=== PATIENT | female | born 1985 | race Caucasian/White ===

== ENCOUNTER 2016-11-04 05:22 | Day surgery (SDC) | payer OTHER ==
[~2016-11-04] VITALS: Ht 154.9 cm; Wt 55.0 kg
[~2016-11-04 05:22] MED LIST: DIABETA2.5 MG PO; ENDOCET 5-3251 EACH PO; GLUCOPHAGE1000 MG PO; GLUCOPHAGE500 MG PO; HUMALOG100 UNIT/2 SC; HYDROCODON-ACE1 EAC7 PO; IBUPROFEN800 MG PO; LEVEMIR FL100 UNIT/1 SC; LO-DOSE ASPIRIN81 M1 PO; METFORMIN HCL500 MG PO; MOTRIN800 MG PO; NORCO 5/3251 TABLET PO; PRENATAL TABLE1 EAC3 PO; PRENATAL TABLE1 EACH PO; PROGESTERONE200 MG PO; VENTOLIN HFA18 GM IH; VIBRAMYCIN100 MG PO
[2016-11-04] MEDS ORDERED: TYLENOL EXTRA500 MG PO (05:51)
[2016-11-04 06:05] VITALS: BP 110/77
[2016-11-04 06:08] LABS: POINT-OF-CARE METER ID UU13113694
[2016-11-04] MEDS ORDERED: ENDOCET 5-3251 EACH PO (08:05)
[2016-11-04 08:34] LABS: POINT-OF-CARE METER ID UU13113675
[2016-11-04 09:27] VITALS: BP 123/86
[2016-11-04 10:27] VITALS: BP 119/80
== END 2016-11-04 10:40 | disposition home or self-care (01) ==
LOC: SDC 05:22
PROVIDERS: Obstetrics & Gynecology Gynecology
PROC: 10D17ZZ Extraction of Products of Conception, Retained, Via Natural or Artificial Opening (ICD-10-PCS; principal; 2016-11-04)
DX: O02.1 Missed abortion (principal); Z3A.09 9 weeks gestation of pregnancy; O24.911 Unspecified diabetes mellitus in pregnancy, first trimester; Z79.82 Long term (current) use of aspirin; Z79.4 Long term (current) use of insulin
CPT/HCPCS: 82948; 86900; 86901; 88305; J0131; J1100; J1885; J2250; J2405; J2765; J3010

== ENCOUNTER 2017-11-14 15:21 | Outpatient (CLI) | payer OTHER ==
[~2017-11-14] VITALS: Ht 154.9 cm; Wt 73.0 kg
[~2017-11-14 15:21] MED LIST changes: +TYLENOL EXTRA500 MG PO
[2017-11-14 15:40] VITALS: BP 132/87
[2017-11-14] MEDS ORDERED: ZOLOFT50 MG PO (15:54)
[2017-11-14 16:01] VITALS: BP 129/82
[2017-11-14 16:15] LABS: BASOPHIL (%) 0.3 % (0-1); EOSINOPHIL (%) 0.7 % (0-5); EOSINOPHIL COUNT 0.1 K/uL (0-0.3); HEMOGLOBIN 10.6 G/DL (11.9-15.5); IMMATURE GRANULOCYTE (%) 0.9 % (0.0-0.7); LYMPHOCYTE (%) 12.8 % (15-42); LYMPHOCYTE COUNT 0.9 K/uL (1.0-2.8); MCH 29.4 PG (29.0-34.0); MCHC 33.1 G/DL (30.0-36.0); MCV 88.9 FL (83-99); MONOCYTE (%) 6.2 % (3-12); MONOCYTE COUNT 0.4 K/uL (0-0.8); NEUTROPHIL (%) 79.1 % (45-76); NEUTROPHIL COUNT 5.4 K/uL (1.8-6.4); PLATELET COUNT 135 K/uL (156-360); RBC DIS.WIDTH-CV 14.9 % (11.8-14.6); RBC DIS.WIDTH-SD 48.3 % (39-53); WHITE BLOOD COUNT 6.8 K/uL (4.1-10.2)
[2017-11-14 16:28] LABS: ALBUMIN 2.9 G/DL (3.2-4.8); CHLORIDE 108 MEQ/L (99-109); POTASSIUM 3.9 MEQ/L (3.7-5.4); SODIUM 139 MEQ/L (136-147); TOTAL BILIRUBIN 0.3 MG/DL (0.0-1.0)
[2017-11-14 16:31] VITALS: BP 121/84
[2017-11-14 16:34] LABS: ALKALINE PHOSPHATASE 170 IU/L (3-129); ALT (GPT) 10 IU/L (3-49); AST (GOT) 20 IU/L (2-34); CREATININE 0.5 MG/DL (0.6-1.3); GFR ESTIMATE (CALCULATED) > 59 mL/min/; GLUCOSE 110 mg/dL (70-99); TOTAL PROTEIN 5.5 G/DL (6.4-8.3); UREA NITROGEN (BUN) 6 mg/dL (9-23)
[2017-11-14 16:43] LABS: UR CREATININE CONCENTRATION 51.5 MG/DL
[2017-11-14 16:54] VITALS: BP 128/88
== END 2017-11-14 17:38 | disposition home or self-care (01) ==
LOC: LDRP-OP 15:21 → 2WEST 15:22 → LDRP-OP 12-28 11:50
PROVIDERS: Advanced Practice Midwife
DX: O13.3 Gestational [pregnancy-induced] hypertension without significant proteinuria, third trimester (principal); Z3A.38 38 weeks gestation of pregnancy; O24.313 Unspecified pre-existing diabetes mellitus in pregnancy, third trimester; O24.113 Pre-existing type 2 diabetes mellitus, in pregnancy, third trimester; E11.9 Type 2 diabetes mellitus without complications; Z79.4 Long term (current) use of insulin
CPT/HCPCS: 59025; 80053; 82570; 84156; 85025; G0378

== ENCOUNTER 2017-11-15 14:11 | Inpatient (IN) | payer OTHER ==
[2017-11-15] VITALS (21 sets, daily range): BP systolic 115–179; BP diastolic 71–94
[~2017-11-15] VITALS: Ht 154.9 cm; Wt 72.0 kg
[~2017-11-15 14:11] MED LIST changes: +ZOLOFT50 MG PO
[2017-11-15 15:18] LABS: BASOPHIL (%) 0.1 % (0-1); EOSINOPHIL (%) 0.6 % (0-5); EOSINOPHIL COUNT 0.1 K/uL (0-0.3); HEMATOCRIT 32.3 % (36.0-46.0); HEMOGLOBIN 10.9 G/DL (11.9-15.5); IMMATURE GRANULOCYTE (%) 1.2 % (0.0-0.7); LYMPHOCYTE (%) 13.2 % (15-42); MCH 29.5 PG (29.0-34.0); MCHC 33.7 G/DL (30.0-36.0); MCV 87.5 FL (83-99); MONOCYTE COUNT 0.5 K/uL (0-0.8); NEUTROPHIL (%) 78.9 % (45-76); NEUTROPHIL COUNT 6.2 K/uL (1.8-6.4); NRBC (%) 0.3 /100 WBC (0-0); PLATELET COUNT 145 K/uL (156-360); RBC DIS.WIDTH-CV 14.7 % (11.8-14.6); RBC DIS.WIDTH-SD 46.8 % (39-53); RED BLOOD COUNT 3.69 M/uL (3.80-5.20); WHITE BLOOD COUNT 7.8 K/uL (4.1-10.2)
[2017-11-15 15:26] LABS: CHLORIDE 111 mEq/L (99-109); POTASSIUM 3.9 mEq/L (3.7-5.4); SODIUM 139 mEq/L (136-147)
[2017-11-15 15:28] LABS: TOTAL PROTEIN 5.9 g/dL (6.4-8.3)
[2017-11-15 15:30] LABS: TOTAL BILIRUBIN 0.3 mg/dL (0.0-1.0)
[2017-11-15 15:32] LABS: ALKALINE PHOSPHATASE 188 IU/L (3-129); CREATININE 0.6 mg/dL (0.6-1.3); GFR ESTIMATE (CALCULATED) > 59 mL/min/
[2017-11-15 15:33] LABS: UREA NITROGEN (BUN) 8 mg/dL (9-23)
[2017-11-15 15:34] LABS: AST (GOT) 29 IU/L (2-34)
[2017-11-15 15:35] LABS: ALT (GPT) 15 IU/L (3-49); URIC ACID 5.7 mg/dL (3.1-9.2)
[2017-11-15 15:38] LABS: GLUCOSE 59 mg/dL (70-99)
[2017-11-15 16:23] LABS: UR CREATININE CONCENTRATION 80.6 MG/DL
[2017-11-15 16:39] LABS: AMPHETAMINE NEGATIVE (500 ng/mL); BARBITURATES NEGATIVE (200 ng/mL); BENZODIAZEPINES NEGATIVE (150 ng/mL); BUPRENORPHINE NEGATIVE (10 ng/mL); COCAINE NEGATIVE (150 ng/mL); METHADONE NEGATIVE (200 ng/mL); METHAMPHETAMINE NEGATIVE (500 ng/mL); OPIATES (MORPHINE) NEGATIVE (100 ng/mL); OXYCODONE NEGATIVE (100 ng/mL); PHENCYCLIDINE NEGATIVE (25 ng/mL); PROPOXYPHENE NEGATIVE (300 ng/mL); THC CANNABINOIDS NEGATIVE (50 ng/mL); TRICYCLIC ANTIDEPRESSANTS NEGATIVE (300 ng/mL)
[2017-11-16] VITALS (24 sets, daily range): BP systolic 115–162; BP diastolic 72–98
[2017-11-16 10:27] LABS: TREPONEMA ANTIBODY NEGATIVE (NEGATIVE)
[2017-11-16] MEDS ORDERED: IBUPROFEN800 MG PO (13:51)
[2017-11-17 04:00] VITALS: BP 134/96
[2017-11-17 06:06] LABS: BASOPHIL (%) 0.3 % (0-1); EOSINOPHIL (%) 0.8 % (0-5); EOSINOPHIL COUNT 0.1 K/uL (0-0.3); HEMATOCRIT 27.4 % (36.0-46.0); HEMOGLOBIN 9.1 G/DL (11.9-15.5); IMMATURE GRANULOCYTE (%) 1.4 % (0.0-0.7); LYMPHOCYTE COUNT 1.9 K/uL (1.0-2.8); MCH 29.7 PG (29.0-34.0); MCHC 33.2 G/DL (30.0-36.0); MCV 89.5 FL (83-99); MONOCYTE (%) 6.7 % (3-12); MONOCYTE COUNT 0.6 K/uL (0-0.8); NEUTROPHIL (%) 70.8 % (45-76); NEUTROPHIL COUNT 6.8 K/uL (1.8-6.4); PLATELET COUNT 118 K/uL (156-360); RBC DIS.WIDTH-CV 14.4 % (11.8-14.6); RBC DIS.WIDTH-SD 46.7 % (39-53); RED BLOOD COUNT 3.06 M/uL (3.80-5.20); WHITE BLOOD COUNT 9.6 K/uL (4.1-10.2)
[2017-11-17 07:26] VITALS: BP 122/84
[2017-11-17 12:10] VITALS: BP 138/87
[2017-11-17 15:11] VITALS: BP 137/89
[2017-11-17 19:33] VITALS: BP 155/89
[2017-11-18 03:01] VITALS: BP 134/80
[2017-11-18] MEDS ORDERED: METFORMIN HCL500 MG PO (09:41)
== END 2017-11-18 11:04 | disposition home or self-care (01) | DRG 774 ==
LOC: LDRP-OP 14:11 → 2WEST 14:12 → LDRP-OP 12-28 19:01
PROVIDERS: Advanced Practice Midwife; Nurse Practitioner; Obstetrics & Gynecology
PROC: 3E033VJ Introduction of Other Hormone into Peripheral Vein, Percutaneous Approach (ICD-10-PCS; principal; 2017-11-15)
PROC: 00HU33Z Insertion of Infusion Device into Spinal Canal, Percutaneous Approach (ICD-10-PCS; 2017-11-16)
PROC: 10907ZC Drainage of Amniotic Fluid, Therapeutic from Products of Conception, Via Natural or Artificial Opening (ICD-10-PCS; 2017-11-16)
PROC: 10E0XZZ Delivery of Products of Conception, External Approach (ICD-10-PCS; 2017-11-16)
PROC: 3E0R3BZ Introduction of Anesthetic Agent into Spinal Canal, Percutaneous Approach (ICD-10-PCS; 2017-11-16)
DX: O13.4 Gestational [pregnancy-induced] hypertension without significant proteinuria, complicating childbirth (principal); O24.02 Pre-existing type 1 diabetes mellitus, in childbirth; E10.9 Type 1 diabetes mellitus without complications; Z3A.38 38 weeks gestation of pregnancy; Z37.0 Single live birth; O99.52 Diseases of the respiratory system complicating childbirth; J45.909 Unspecified asthma, uncomplicated; O99.344 Other mental disorders complicating childbirth; F32.9 Major depressive disorder, single episode, unspecified; F41.9 Anxiety disorder, unspecified
CPT/HCPCS: 80053; 82570; 82948; 84156; 84550; 85025; 86780; C1755; G0378; J1815; J3010; J7120

== ENCOUNTER 2017-11-21 11:07 | Inpatient (IN) | payer OTHER ==
[2017-11-21] VITALS (16 sets, daily range): BP systolic 124–178; BP diastolic 67–99
[2017-11-21] MEDS ORDERED: LABETALOL HCL100 MG PO (11:50)
[2017-11-21 12:32] LABS: BASOPHIL (%) 0.3 % (0-1); EOSINOPHIL (%) 0.3 % (0-5); HEMATOCRIT 27.1 % (36.0-46.0); HEMOGLOBIN 8.8 G/DL (11.9-15.5); IMMATURE GRANULOCYTE (%) 0.7 % (0.0-0.7); LYMPHOCYTE (%) 12.7 % (15-42); LYMPHOCYTE COUNT 1.2 K/uL (1.0-2.8); MCH 29.4 PG (29.0-34.0); MCHC 32.5 G/DL (30.0-36.0); MCV 90.6 FL (83-99); MONOCYTE COUNT 0.5 K/uL (0-0.8); NEUTROPHIL COUNT 7.2 K/uL (1.8-6.4); RBC DIS.WIDTH-SD 47.4 % (39-53); RED BLOOD COUNT 2.99 M/uL (3.80-5.20)
[2017-11-21 12:33] LABS: PLATELET COUNT 227 K/uL (156-360)
[2017-11-21 12:47] LABS: UR CREATININE CONCENTRATION 103.5 MG/DL
[2017-11-21 12:59] LABS: ALBUMIN 2.9 G/DL (3.2-4.8); CHLORIDE 111 MEQ/L (99-109); CREATININE 0.4 MG/DL (0.6-1.3); GFR ESTIMATE (CALCULATED) > 59 mL/min/; GLUCOSE 90 mg/dL (70-99); POTASSIUM 3.9 MEQ/L (3.7-5.4); SODIUM 143 MEQ/L (136-147); TOTAL BILIRUBIN 0.3 MG/DL (0.0-1.0); TOTAL PROTEIN 5.2 G/DL (6.4-8.3); UREA NITROGEN (BUN) 9 mg/dL (9-23)
[2017-11-21 13:04] LABS: ALKALINE PHOSPHATASE 110 IU/L (3-129); ALT (GPT) 36 IU/L (3-49); AST (GOT) 35 IU/L (2-34)
[2017-11-22] VITALS (19 sets, daily range): BP systolic 119–173; BP diastolic 67–96
[2017-11-23] VITALS (24 sets, daily range): BP systolic 115–195; BP diastolic 68–109
[2017-11-23] MEDS ORDERED: LABETALOL HCL200 MG PO (10:10)
[2017-11-23] MEDS ORDERED: METFORMIN HCL500 MG PO (11:27)
[2017-11-23 12:34] LABS: BASOPHIL (%) 0.3 % (0-1); EOSINOPHIL (%) 0.6 % (0-5); EOSINOPHIL COUNT 0.1 K/uL (0-0.3); HEMATOCRIT 30.8 % (36.0-46.0); IMMATURE GRANULOCYTE (%) 0.9 % (0.0-0.7); LYMPHOCYTE (%) 15.1 % (15-42); LYMPHOCYTE COUNT 1.6 K/uL (1.0-2.8); MCH 29.4 PG (29.0-34.0); MCHC 32.5 G/DL (30.0-36.0); MCV 90.6 FL (83-99); MONOCYTE (%) 6.5 % (3-12); MONOCYTE COUNT 0.7 K/uL (0-0.8); NEUTROPHIL (%) 76.6 % (45-76); NEUTROPHIL COUNT 8.1 K/uL (1.8-6.4); RBC DIS.WIDTH-CV 14.9 % (11.8-14.6); RBC DIS.WIDTH-SD 49.2 % (39-53); WHITE BLOOD COUNT 10.5 K/uL (4.1-10.2)
[2017-11-23 12:38] LABS: PLATELET COUNT 328 K/uL (156-360)
[2017-11-23 12:49] LABS: ALBUMIN 3.4 g/dL (3.2-4.8)
[2017-11-23 12:50] LABS: CHLORIDE 110 mEq/L (99-109); POTASSIUM 4.2 mEq/L (3.7-5.4); SODIUM 143 mEq/L (136-147)
[2017-11-23 12:52] LABS: GLUCOSE 94 mg/dL (70-99); TOTAL PROTEIN 6.1 g/dL (6.4-8.3)
[2017-11-23 12:54] LABS: TOTAL BILIRUBIN 0.3 mg/dL (0.0-1.0)
[2017-11-23 12:55] LABS: ALKALINE PHOSPHATASE 133 IU/L (3-129)
[2017-11-23 12:56] LABS: CREATININE 0.7 mg/dL (0.6-1.3); GFR ESTIMATE (CALCULATED) > 59 mL/min/
[2017-11-23 12:57] LABS: AST (GOT) 21 IU/L (2-34); UREA NITROGEN (BUN) 10 mg/dL (9-23)
[2017-11-23 12:59] LABS: ALT (GPT) 28 IU/L (3-49)
[2017-11-23 15:21] LABS: MAGNESIUM 3.2 mg/dL (1.3-2.7)
[2017-11-23 15:27] LABS: DIRECT BILIRUBIN 0.1 mg/dL (0.0-0.3)
[2017-11-23 21:53] LABS: APPEARANCE CLEAR ((CLEAR)); BILIRUBIN NEGATIVE; BLOOD LARGE; COLOR STRAW ((YELLOW)); GLUCOSE (STRIP) NEGATIVE; KETONES NEGATIVE; LEUKOCYTES TRACE; NITRITE NEGATIVE; PROTEIN (STRIP) NEGATIVE; SPECIFIC GRAVITY 1.006 (1.000-1.030); UROBILINOGEN 0.2 MG/DL (0.2-1.0)
[2017-11-23 22:06] LABS: BACTERIA RARE /HPF; EPITHELIAL CELLS RARE /HPF; MUCUS TRACE /LPF; RED BLOOD CELLS 40-50 /HPF (0-5); UCUL ADDED? YES
[2017-11-23 22:15] LABS: UR CREATININE CONCENTRATION 10.4 MG/DL
[2017-11-24] VITALS (11 sets, daily range): BP systolic 106–147; BP diastolic 66–91
[2017-11-25 03:10] VITALS: BP 142/86
[2017-11-25 10:51] VITALS: BP 159/93
[2017-11-25] MEDS ORDERED: NIFEDIPINE ER30 MG PO (11:31)
[2017-11-25] MEDS ORDERED: LABETALOL HCL200 MG PO (11:31)
[2017-11-25] MEDS ORDERED: LORAZEPAM1 MG PO (11:54)
[2017-11-25] MEDS ORDERED: LABETALOL HCL300 MG PO (11:54)
== END 2017-11-25 12:41 | disposition home or self-care (01) | DRG 776 ==
LOC: LDRP-OP 11:07 → 2WEST 11:08
PROVIDERS: Obstetrics & Gynecology
DX: O14.15 Severe pre-eclampsia, complicating the puerperium (principal); O24.13 Pre-existing type 2 diabetes mellitus, in the puerperium; E11.9 Type 2 diabetes mellitus without complications; Z79.84 Long term (current) use of oral hypoglycemic drugs; O99.345 Other mental disorders complicating the puerperium; F41.9 Anxiety disorder, unspecified; O90.81 Anemia of the puerperium; D64.9 Anemia, unspecified; O99.53 Diseases of the respiratory system complicating the puerperium; J45.909 Unspecified asthma, uncomplicated
CPT/HCPCS: 70450; 80053; 80076; 81003; 82248; 82570; 82948; 83735; 84156; 85025; 87086; 93005; G0378; J0360; J3475; J7120